=== PATIENT | female | born 1980 | race Caucasian/White ===

== ENCOUNTER 2020-12-17 10:51 | Outpatient (CLI) | payer OTHER ==
[2020-12-17 14:46] LABS: Free T4 (Free Thyroxine) 1.1 ng/dL (0.70-1.48); Thyroid Stimulating Hormone 1.1565 uIU/mL (0.35-4.94)
== END 2020-12-17 10:52 | disposition home or self-care (01) ==
LOC: SCSRAD 10:51
PROVIDERS: ATTEND Family Medicine
DX: J18.9 Pneumonia, unspecified organism (principal); E03.8 Other specified hypothyroidism
CPT/HCPCS: 36415; 71046; 84439; 84443; 84481